=== PATIENT | female | born 1960 | race African-American/Black ===

== ENCOUNTER 2016-12-04 11:32 | Emergency (ER) | payer SELFPAY ==
[~2016-12-04] VITALS: Ht 167.6 cm; Wt 70.3 kg
[2016-12-04 11:32] VITALS: BP 136/88
[~2016-12-04 11:32] MED LIST: ALPR0.5T PO
[2016-12-04] MEDS ORDERED: INSULIN REGULAR, HUMAN 100 UNIT in IV NS 0.9% 99 ML IV PRN ×2 (12:30)
== END 2016-12-04 13:34 | disposition home or self-care (01) ==
LOC: ER 11:33
DX: M79.672 Pain in left foot (principal); Z88.1 Allergy status to other antibiotic agents; H53.9 Unspecified visual disturbance
CPT/HCPCS: 93971-TC; A4606; Z7610

== ENCOUNTER 2018-03-25 10:26 | Emergency (ER) | payer SELFPAY ==
[~2018-03-25] VITALS: Ht 167.6 cm; Wt 52.6 kg
[2018-03-25 10:36] VITALS: BP 136/70
== END 2018-03-25 10:59 | disposition home or self-care (01) ==
LOC: ER 10:32
DX: J02.0 Streptococcal pharyngitis (principal); I88.9 Nonspecific lymphadenitis, unspecified; Z88.1 Allergy status to other antibiotic agents; Z90.710 Acquired absence of both cervix and uterus; Z60.2 Problems related to living alone
CPT/HCPCS: 99283; A4606; Z7610

== ENCOUNTER 2018-09-20 04:42 | Emergency (ER) | payer SELFPAY ==
[~2018-09-20] VITALS: Ht 167.6 cm; Wt 70.8 kg
[2018-09-20 04:57] VITALS: BP 142/85
[2018-09-20] MEDS ORDERED: predniSONE 20 MG TABLET PO ONE (05:00)
[2018-09-20] MEDS ORDERED: diphenhydrAMINE HCL 25 MG CAPSULE PO ONE (05:00)
[2018-09-20] MEDS ORDERED: diphenhydrAMINE HCL 25 MG CAPSULE ONE (05:04)
[2018-09-20] MEDS ORDERED: predniSONE 20 MG TABLET ONE (05:04)
[2018-09-20] MEDS ORDERED: HEPARIN SODIUM,PORCINE/PF 50 UNIT/5 ML DISP.SYRIN IV ONE (05:30)
== END 2018-09-20 05:27 | disposition home or self-care (01) ==
LOC: ER 04:43
DX: L50.9 Urticaria, unspecified (principal); Z98.890 Other specified postprocedural states; Z88.1 Allergy status to other antibiotic agents; Z60.2 Problems related to living alone; Z79.899 Other long term (current) drug therapy
CPT/HCPCS: A4606; J1642; Q0163; Z7610

== ENCOUNTER 2018-10-09 06:34 | Emergency (ER) | payer SELFPAY ==
[~2018-10-09] VITALS: Ht 170.2 cm; Wt 70.3 kg
[2018-10-09 06:43] VITALS: BP 138/89
[2018-10-09] MEDS ORDERED: PERMETHRIN 5% CRM 60 GM TUBE TP ONE (07:00)
== END 2018-10-09 07:18 | disposition home or self-care (01) ==
LOC: ER 06:39
DX: R21 Rash and other nonspecific skin eruption (principal); Z90.711 Acquired absence of uterus with remaining cervical stump; Z98.890 Other specified postprocedural states; Z88.8 Allergy status to other drugs, medicaments and biological substances; Z88.1 Allergy status to other antibiotic agents; Z60.2 Problems related to living alone; Z79.899 Other long term (current) drug therapy

== ENCOUNTER 2018-12-17 04:22 | Emergency (ER) | payer SELFPAY ==
[~2018-12-17] VITALS: Ht 167.6 cm; Wt 70.3 kg
[2018-12-17 04:35] VITALS: BP 140/88
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
== END 2018-12-17 05:14 | disposition home or self-care (01) ==
LOC: ER 04:26
DX: B86 Scabies (principal); F41.9 Anxiety disorder, unspecified; Z90.710 Acquired absence of both cervix and uterus; Z98.890 Other specified postprocedural states; Z88.8 Allergy status to other drugs, medicaments and biological substances; Z60.2 Problems related to living alone; Z79.899 Other long term (current) drug therapy
CPT/HCPCS: 99282; A4606

== ENCOUNTER 2019-04-16 02:25 | Emergency (ER) | payer MEDICAID ==
[~2019-04-16] VITALS: Ht 167.6 cm; Wt 68.0 kg
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
[2019-04-16] MEDS ORDERED: IBUPROFEN 400 MG TABLET PO ONE (03:30)
[2019-04-16] MEDS ORDERED: IBUPROFEN 400 MG TABLET ONE (03:34)
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
[2019-04-16 04:21] VITALS: BP 149/86
--- NOTE | 2019-04-16 04:23 | NUR ---
Patient is resting comfortably in bed with eyes closed. Easily aroused. VSS.
--- NOTE | 2019-04-16 05:17 | NUR ---
Patient discharged to home in stable condition. Written and verbal after care instructions given. Patient verbalizes understanding of instruction.
== END 2019-04-16 05:19 | disposition home or self-care (01) ==
LOC: ER 02:30
DX: G43.909 Migraine, unspecified, not intractable, without status migrainosus (principal); E78.00 Pure hypercholesterolemia, unspecified; Z90.710 Acquired absence of both cervix and uterus; Z98.890 Other specified postprocedural states; Z88.1 Allergy status to other antibiotic agents; V49.9XXA Car occupant (driver) (passenger) injured in unspecified traffic accident, initial encounter; Y93.89 Activity, other specified; Y92.488 Other paved roadways as the place of occurrence of the external cause; Y99.8 Other external cause status
CPT/HCPCS: 70450-TC

== ENCOUNTER 2019-04-17 07:17 | Emergency (ER) | payer OTHER ==
[~2019-04-17] VITALS: Ht 167.6 cm; Wt 68.0 kg
[2019-04-17] MEDS ORDERED: ACETAMINOPHEN ES 500 MG TABLET ONE (07:42)
--- NOTE | 2019-04-17 07:56 | NUR ---
c/o lower abdominal pain since yesterday and chronic back pain. PT AAOX4, VSS, RR EVEN & UNLABORED. DENIES CP, SOB, DIZZINESS, N/V/D AT THIS TIME. PT SEEN & EVAL'D BY DR. KIMBROUGH & MEDICATED ORDERED. WILL CONT TO MONITOR.
[2019-04-17 08:00] LABS: BASOPHILS # (AUTO) 0.2 /CMM (0.0-0.2); BASOPHILS % (AUTO) 2.6 % (0.0-2.0); EOSINOPHILS % (AUTO) 2.1 % (0.0-6.0); HEMATOCRIT 42 % (33-45); HEMOGLOBIN 13.7 g/dL (11.5-14.8); LYMPHOCYTES % (AUTO) 44.7 % (20.0-44.0); MEAN CORPUSCULAR HGB CONC 33 g/dl (31.0-36.0); MEAN CORPUSCULAR VOLUME 91 fL (82-100); MONOCYTES # (AUTO) 0.5 /CMM (0.1-1.30); MONOCYTES % (AUTO) 8.1 % (2.0-12.0); NEUTROPHILS # (AUTO) 2.9 /CMM (1.8-8.9); NEUTROPHILS % (AUTO) 42.5 % (43.0-81.0); PLATELET COUNT (AUTO) 344 /CMM (150-450); RED BLOOD CELL COUNT(AUTO) 4.64 MIL/uL (4.0-5.2); WHITE BLOOD COUNT (AUTO) 6.7 K/uL (4.3-11.0)
[2019-04-17] MEDS ORDERED: ACETAMINOPHEN ES 500 MG TABLET PO ONE (08:00)
[2019-04-17 08:03] LABS: CALCIUM, SERUM 8.8 mg/dL (8.5-10.1); POTASSIUM 3.9 mmol/L (3.5-5.1)
[2019-04-17 09:32] VITALS: BP 128/80
--- NOTE | 2019-04-17 09:32 | NUR ---
Patient discharged to home in stable condition. Written and verbal after care instructions given. Patient verbalizes understanding of instruction.
== END 2019-04-17 09:35 | disposition home or self-care (01) ==
LOC: ER 07:19
DX: R10.30 Lower abdominal pain, unspecified (principal); M54.9 Dorsalgia, unspecified; G89.29 Other chronic pain; R51 Headache; M54.2 Cervicalgia; E78.00 Pure hypercholesterolemia, unspecified; Z90.710 Acquired absence of both cervix and uterus; Z98.890 Other specified postprocedural states; Z88.1 Allergy status to other antibiotic agents; V49.9XXA Car occupant (driver) (passenger) injured in unspecified traffic accident, initial encounter; Y93.89 Activity, other specified; Y92.410 Unspecified street and highway as the place of occurrence of the external cause; Y99.8 Other external cause status
CPT/HCPCS: 36415; 71045-TC; 80048-TC; 85025-TC